=== PATIENT | female | born 1950 | race Caucasian/White ===

== ENCOUNTER 2016-08-04 07:47 | Day surgery (SDC) | payer SELFPAY ==
[2016-07-31 09:20] LABS: HEMATOCRIT 40.4 % (36.0-48.0); HEMOGLOBIN 14.1 g/dL (12.0-16.0)
[2016-07-31 09:55] LABS: A/G RATIO 1.4 (0.7-1.9); ALBUMIN 3.8 G/DL (3.5-5.0); ALKALINE PHOSPHATASE 85 U/L (45-117); BUN (BLOOD UREA NITROGEN) 10 MG/DL (6-23); CHLORIDE, SERUM 103 MMOL/L (96-112); CO2 (CARBON DIOXIDE) 27 MMOL/L (24-34); CREATININE 0.63 MG/DL (0.55-1.02); GFR AFRICAN AMERICAN 109 ML/MIN (>=60); GFR NON AFRICAN AMERICAN 94 ML/MIN (>=60); GLOBULIN 2.8 G/DL (2.5-4.1); GLUCOSE, SERUM 97 MG/DL (60-99); POTASSIUM, SERUM 4.1 MMOL/L (3.5-5.3); SGOT(AST) 24 U/L (5-40); SGPT(ALT) 25 U/L (5-65); SODIUM, SERUM 137 MMOL/L (135-148); TOTAL BILIRUBIN 0.4 MG/DL (0-1.2); TOTAL PROTEIN 6.6 G/DL (6.0-8.5)
--- NOTE | ~2016-08-04 | OP ---
Record Of Operation [facility] [address] [place]. [address] NAME: JETT ARAMBULA : 52 STATUS : REG [facility] [place] PAT#: [id number] AGE: 66 ADM/REG DATE : 08/04/16 MR#: [id number] REPORT SERV DATE: 08/04/16 DICTATED BY: JANETT LONDON JR. 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 That occupies a very large area on exam and imaging. Unfortunately, biopsies show a low grade tumor that should overall have a high cure rate. She is not a candidate for breast preservation and indeed, she will be able to avoid chemotherapy postoperatively. She is a very heavy smoker and carries a chronic cough with "asthma." She also has significant obesity which are certainly comorbid factors. PREOPERATIVE DIAGNOSIS: Carcinoma, left breast. POSTOPERATIVE DIAGNOSIS: Carcinoma, left breast. SURGEON: Janett London M.D. SURGERY PERFORMED: Patriot node localization, followed by left mastectomy, and sentinel node resection. DESCRIPTION OF PROCEDURE: The patient was initially injected in the nuclear medicine facility. She was taken to the operating room and under general anesthesia, she was prepped and draped in a supine position in the usual sterile fashion. The left breast mound was marked and a transverse oriented approach was marked. An elliptical incision was made and flaps were elevated in each direction to incorporate the entire breast mound. The latissimus was cleared laterally, but I took additional time to remove the fatty envelope on both sides of the latissimus well on to the lateral wall as her breast is not particularly large, but is encased within a large fatty torso. The breast was then removed from above downward incorporating the fascia. Once the breast was left suspended by the axillary tail, the gamma probe was used to isolate a singly active node which was removed with a count of over 500 and background count less than 10, indicating appropriate resection of the sentinel node. A small adjacent nonactive node was taken as a second specimen. Further dissection through the low axilla was performed and the specimen was removed and oriented for pathology. The wound was irrigated and hemostasis was obtained. Two suction drains were inserted and secured with Prolene. The wound was closed with two layers of Monocryl. The patient tolerated the procedure well without complications. ESTIMATED BLOOD LOSS: 75 mL. SPONGE COUNT: Correct. Record Of Operation [facility] [place] [address] NAME: JETT ARAMBULA : 52 STATUS : REG [facility] [place] PAT#: [id number] AGE: 66 ADM/REG DATE : 08/04/16 MR#: [id number] REPORT SERV DATE: 08/04/16 DICTATED BY: JANETT LONDON JR. DATE: 08/04/16 REPORT STATUS : Draft TRANSCRIBED BY: PERLA DATE: 08/04/16 /PERLA Janett London Jr., M.D. / [id number] CC: Flako Santos Jr., M.D. [facility]
[~2016-08-04 07:47] MED LIST: ALLEGRA180 PO; DULERA 100 MCG/13 GM INH; PRIN10 PO; VITAMIN D31000 UNIT PO
== END 2016-08-04 17:14 | disposition home or self-care (01) ==
LOC: SDC 07:47
PROVIDERS: Surgery Surgical Oncology
PROC: 07B60ZX Excision of Left Axillary Lymphatic, Open Approach, Diagnostic (ICD-10-PCS; 2016-08-04)
PROC: 0HBU0ZZ Excision of Left Breast, Open Approach (ICD-10-PCS; principal; 2016-08-04 09:45)
DX: C50.912 Malignant neoplasm of unspecified site of left female breast (principal); I10 Essential (primary) hypertension; J44.9 Chronic obstructive pulmonary disease, unspecified; F17.210 Nicotine dependence, cigarettes, uncomplicated; M19.90 Unspecified osteoarthritis, unspecified site; J45.909 Unspecified asthma, uncomplicated; Z98.890 Other specified postprocedural states
CPT/HCPCS: 71020; 78195; 80053; 85014; 85018; 88305; 88307; 88342; 93005; A9270-GY; A9541; J0690; J1170; J2250; J2405; J3010